=== PATIENT | male | born 1950 | race Caucasian/White ===

== ENCOUNTER → 2017-06-09 | Outpatient (CLI) | payer MEDICARE, OTHER ==
--- NOTE | 2017-06-09 08:46 | RADIOLOGY REPORT (SQ) ---
EXAM DESCRIPTION: CT ABD/PELVIS WITH IV ORAL COMPLETED DATE/TIME: 06/09/2017 8:18 am REASON FOR STUDY: BENIGN NEOPLASM OF CECUM (D12.0) D12.0 BENIGN NEOPLASM OF CECUM COMPARISON: None. TECHNIQUE: CT scan of the abdomen and pelvis performed using helical scanning technique with dynamic intravenous contrast injection. Patient drank oral contrast. Images reviewed with lung, soft tissue , and bone windows. Reconstructed coronal and sagittal MPR images reviewed. Delayed images for evalua tion of the urinary system also acquired. All images stored on PACS. All CT scanners at this facility use dose modulation, iterative reconstruction, and/or weight based d osing when appropriate to reduce radiation dose to as low as reasonably achievable (ALARA). [facility]: Dose Right [facility]: CareDose [facility]: Dose Right [facility]: Teradose 4D [facility]: [facility] CONTRAST TYPE AND DOSE: contrast/concentration: Isovue 370.00 mg/ml; Total Contrast Delivered: 93.0 ml; Total Saline Delivered: 71.0 ml RENAL FUNCTION: Creatinine 0.9 RADIATION DOSE: CT Rad equipment meets quality standard of care and radiation dose reduction techniq ues were employed. CTDIvol: 10.9 - 12.6 mGy. DLP: 1278 mGy-cm.. LIMITATIONS: None. FINDINGS: Patient had a recent colonoscopy which demonstrated a mass in the cecum, tubulovillous at adenoma with atypia. On axial images 56 through 66, and coronal image 55, there is a 4.8 cm cranioca udad by 5.2 cm transverse x 2.6 cm AP mass along the posterior wall of the cecum extending from the i leocecal valve to the base of the appendix. There are several less than 7 mm right colon mesenteric nodes. Remainder of the gastrointestinal tract is otherwise unremarkable. Patient drank oral contrast. No evidence of bowel obstruction. No free air or fluid. LOWER CHEST: Less than 4 mm left lateral costophrenic sulcus noncalcified granuloma axial image 14 LIVER: Normal size. No masses. No dilated ducts. 9 mm cyst sub- diaphragmatic surface left lobe li baltazar axial image 15 SPLEEN: Normal size. No focal lesions. PANCREAS: No masses. No significant calcifications. No adjacent inflammation or peripancreatic fluid collections. Pancreatic duct not dilated. GALLBLADDER: No identified stones by CT criteria. No inflammatory changes to suggest cholecystitis. ADRENAL GLANDS: No significant masses or asymmetry. RIGHT KIDNEY AND URETER: No solid masses. No significant calcifications. No hydronephrosis or hyd roureter. LEFT KIDNEY AND URETER: No solid masses. 11 cm left renal cortical cyst. No significant calcificati ons. No hydronephrosis or hydroureter. AORTA AND VESSELS: No aneurysm. No dissection. Renal arteries, SMA, celiac without stenosis. RETROPERITONEUM: No retroperitoneal adenopathy, hemorrhage or masses. BOWEL AND PERITONEAL CAVITY: As above APPENDIX: Normal. PELVIS: No mass. No free fluid. Normal bladder. ABDOMINAL WALL: No masses. No hernias. BONES: No significant or acute findings. OTHER: No other significant finding. IMPRESSION: 5.2 x 4.8 x 2.6 cm mass in the cecum, with multiple small right colon mesenteric nodes TECHNICAL DOCUMENTATION: JOB ID: [id number] Quality ID # [id number]: Final reports with documentation of one or more dose reduction techniques (e.g., Au tomated exposure control, adjustment of the mA and/or kV according to patient size, use of iterative reconstruction technique) 2010 [employer]- All Rights Reserved
== END ==
LOC: RAD 07:29
PROVIDERS: ATTEND Surgery
DX: D12.0 Benign neoplasm of cecum (principal)
CPT/HCPCS: 74177; 82565

== ENCOUNTER 2017-07-20 11:30 | Inpatient (IN) | payer MEDICARE, OTHER ==
[2017-07-15 12:11] LABS: HEMATOCRIT 44.4 % (37.9-51.0); MEAN CORPUSCULAR HEMOGLOBIN 29.4 pg (27.0-33.4); MEAN CORPUSCULAR HGB CONC 33.7 g/dL (32.0-36.0); MEAN CORPUSCULAR VOLUME 87 fl (80-97); PLATELET COUNT 249 10^3/uL (150-450); RED BLOOD COUNT 5.09 10^6/uL (4.35-5.55); RED CELL DISTRIBUTION WIDTH 13.1 % (11.5-14.0); WHITE BLOOD COUNT 6.4 10^3/uL (4.0-10.5)
[2017-07-15 12:36] LABS: ALANINE AMINOTRANSFERASE 31 U/L (21-72); ALBUMIN 4.4 g/dL (3.5-5.0); ALKALINE PHOSPHATASE 62 U/L (38-126); ANION GAP 10 (5-19); ASPARTATE AMINO TRANSFERASE 22 U/L (17-59); BILIRUBIN,DIRECT 0.4 mg/dL (0.0-0.4); BILIRUBIN,TOTAL 0.5 mg/dL (0.2-1.3); BLOOD UREA NITROGEN 23 mg/dL (7-20); CARBON DIOXIDE 29 mmol/L (22-30); CHLORIDE 102 mmol/L (98-107); GLUCOSE 90 mg/dL (75-110); POTASSIUM 4.9 mmol/L (3.6-5.0); SODIUM 141.4 mmol/L (137-145)
--- NOTE | 2017-07-15 12:36 | RADIOLOGY REPORT (SQ) ---
EXAM DESCRIPTION: CHEST PA/LATERAL COMPLETED DATE/TIME: 07/15/2017 11:27 am REASON FOR STUDY: PRE-OP COMPARISON: None. EXAM PARAMETERS: NUMBER OF VIEWS: two views TECHNIQUE: Digital Frontal and Lateral radiographic views of the chest acquired. RADIATION DOSE: NA LIMITATIONS: none FINDINGS: LUNGS AND PLEURA: No opacities, masses or pneumothorax. No pleural effusion. MEDIASTINUM AND HILAR STRUCTURES: No masses or contour abnormalities. HEART AND VASCULAR STRUCTURES: Heart normal size. No evidence for failure. BONES: No acute findings. HARDWARE: None in the chest. OTHER: No other significant finding. IMPRESSION: NO SIGNIFICANT RADIOGRAPHIC FINDING IN THE CHEST. TECHNICAL DOCUMENTATION: JOB ID: [id number] [employer]- All Rights Reserved
[2017-07-15 13:04] LABS: CARCINOEMBRYONIC ANTIGEN 0.9 ng/mL (<3.0)
--- NOTE | 2017-07-16 11:06 | EKG REPORT ---
SEVERITY:- OTHERWISE NORMAL ECG - SINUS BRADYCARDIA : Confirmed by: Silvestre Merlos 16-Jul-2017 11:05:43
[2017-07-26] MEDS ORDERED: ERTAPENEM SODIUM 1 GM in NORMAL SALINE 50 ML IV PRN (11:58)
[2017-07-27] MEDS ORDERED: LACTATED RINGERS 1000 ML IV PRN (05:00)
[2017-07-27] MEDS ORDERED: LIDOCAINE 0.5% INJ-PF (5 MG/ML) 50 ML SDV SUBCUT PRN (05:00)
[2017-07-27] MEDS ORDERED: NEOSTIGMINE METHYLSULFATE 10 MG/10 ML VIAL ONE (07:59)
[2017-07-27] MEDS ORDERED: DEXAMETHASONE SOD PHOSPHATE INJ 4 MG/1 ML VIAL ONE (07:59)
[2017-07-27] MEDS ORDERED: GLYCOPYRROLATE INJ 0.4 MG/2 ML VIAL ONE (07:59)
[2017-07-27] MEDS ORDERED: ONDANSETRON HCL INJ/PF 4 MG/2 ML SDV ONE (07:59)
[2017-07-27] MEDS ORDERED: ROCURONIUM BROMIDE INJ 50 MG/5 ML VIAL IV ONE ×2 (07:59→08:00)
[2017-07-27] MEDS ORDERED: ERTAPENEM SODIUM 1 GM in NORMAL SALINE 50 ML IV PRN (09:34)
[2017-07-27] MEDS ORDERED: ERTAPENEM SODIUM 1 GM in NORMAL SALINE 100 ML IV PRN (09:40)
[2017-07-27] MEDS ORDERED: BUPIVACAINE HCL 0.25 % INJ/PF (2.5 MG/1 ML) 30 ML VIAL ONE (10:02)
[2017-07-27] MEDS ORDERED: FENTANYL CITRATE INJ/PF 250 MCG/5 ML AMPULE ONE (11:08)
[2017-07-27] MEDS ORDERED: MIDAZOLAM 2 MG/2 ML INJ ONE (11:09)
[2017-07-27] MEDS ORDERED: ACETAMINOPHEN 100 ML IV ONE (11:09)
[2017-07-27] MEDS ORDERED: HYDROMORPHONE HCL INJ/PF 2 MG/ML AMPULE ONE (11:09)
[2017-07-27] MEDS ORDERED: PROPOFOL INJ 200 MG/20 ML VIAL IV ONE (11:09)
[2017-07-27] MEDS ORDERED: BUPIVACAINE HCL 0.5%-EPI 1:200000 INJ/PF 30 ML VIAL ONE (11:59)
[2017-07-27] MEDS ORDERED: EPHEDRINE SULFATE INJ 50 MG/1 ML AMPULE ONE (12:16)
[2017-07-27] MEDS ORDERED: FENTANYL CITRATE INJ/PF 100 MCG/2 ML AMPUL IV PRN ×3 (12:33)
[2017-07-27] MEDS ORDERED: DIPHENHYDRAMINE HCL 50 MG/ML VIAL IV PRN (12:33)
[2017-07-27] MEDS ORDERED: PROMETHAZINE HCL INJ 25 MG/1 ML VIAL IV PRN ×2 (12:33)
[2017-07-27] MEDS ORDERED: MORPHINE SULFATE 10 MG/ML INJ IV PRN (12:33)
[2017-07-27] MEDS ORDERED: MEPERIDINE HCL/PF INJ 25 MG/1 ML DISP.SYRIN IV PRN (12:33)
[2017-07-27] MEDS ORDERED: ONDANSETRON HCL INJ/PF 4 MG/2 ML SDV IV PRN (14:44)
[2017-07-27] MEDS ORDERED: GLUCAGON,HUMAN RECOMB 1 MG INJ SUBCUT PRN (14:44)
[2017-07-27] MEDS ORDERED: DEXTROSE 40% GEL 15 GM TUBE PO PRN ×2 (14:44)
[2017-07-27] MEDS ORDERED: DEXTROSE 50%-WATER 25 GM/50 ML DISP.SYRIN IV PRN ×2 (14:44)
--- NOTE | 2017-07-27 14:53 | Operative Report ---
Operative Report DATE OF SURGERY: 07/27/17 PREOPERATIVE DIAGNOSIS: Right colon mass. POSTOPERATIVE DIAGNOSIS: Right colon mass. OPERATION: Right hemicolectomy. SURGEON: LAYLA LEACH ANESTHESIA: GA TISSUE REMOVED OR ALTERED: Right colon. COMPLICATIONS: None. ESTIMATED BLOOD LOSS: 200 cc INTRAOPERATIVE FINDINGS: Large cecal mass. Mesh at the periumbilical fascia well incorporated. 1 cm left lateral segment of the liver smooth round mass consistent with cyst seen on CT scan. PROCEDURE: Informed consent was obtained. Patient was brought to the operating room and placed on the operating room table in the supine position. After satisfactory induction of general anesthesia patient's abdomen was prepped and draped in the usual sterile fashion. A midline abdominal incision was made dissection was carried down through the fascia and the peritoneal cavity was entered without difficulty in the upper abdomen. Dissection was then carried down where I encountered well incorporated mesh at the periumbilical region. The mesh was sharply incised. There were omental adhesions to the mesh which were taken down. Exploratory laparotomy was performed first. The small bowel was run from the ligament of Treitz to the ileocecal junction. The small bowel was normal. There was a large mass palpable in the cecum. Remainder the colon felt normal with no palpable masses. The peritoneal surface was smooth other than the region of the mesh. The liver felt smooth. there was a palpable 1 cm lump that was smooth round but could not be visualized from the surface, at the left lateral segment of the liver. This lump corresponded with the cyst that was seen by CT scan. I discussed the CT scan finding with the radiologist who was certain that the lesion was not a solid lesion. With a benign feel of the lump as well as the benign appearance on CT scan I did not biopsy this lesion. The stomach surface felt smooth. NG tube position was confirmed. Markedly fatty omentum made the procedure difficult. The right colon was mobilized along the line of Toldt. The hepatic flexure was completely mobilized. The ureter and the duodenum were visualized and protected during the dissection. The ileocolic artery was taken very close to its origin by clamping dividing and tying. The entire right colon mesentery was taken with the specimen as well as the right half of the omentum. The terminal ileum was divided with a ALEJANDRA stapling device several centimeters away from the ileocolic junction. The transverse colon was divided at the mid transverse colon level with a ALEJANDRA stapling device. The mesentery of the resected portion of the transverse colon was taken using a LigaSure device. The specimen was submitted to pathology and pathology confirmed a suspicious appearing mass in the cecum. No abnormalities at the margins. Hemostasis appeared good. Bowel continuity was then re- created between the ileum and the transverse colon with a ALEJANDRA stapling device, creating a [id number] functional end-to-end anastomosis. The enterotomy made to introduced a stapling device was closed with a TA stapling device. The anastomosis appeared secure. Vascular supply appeared excellent with palpable pulses in the mesentery of the ileum as well as the transverse colon end. Bowel was returned back into the peritoneal cavity. Omentum was draped over the bowel. Sponge needle and instrument counts were all correct. The fascia was closed with running PDS suture. Skin was closed with augustin. Marcaine was injected at the operative site. Patient tolerated procedure well with no apparent complications and was taken to the recovery area in stable condition.
[2017-07-27] MEDS: HYDROMORPHONE HCL INJ/PF 2 MG/ML AMPULE IV PRN ×2 (16:45→21:20)
[2017-07-27] MEDS: KETOROLAC TROMETHAMINE INJ/PF 30 MG/1 ML SDV IV PRN (19:31)
--- NOTE | 2017-07-27 19:58 | PDOC PROGRESS REPORT ---
Subjective Progress Note for:: 07/27/17 Subjective:: Feels well. No complaints. Reason For Visit: D12.0 BENIGN NEOPLASM OF CECUM Physical Exam Vital Signs: Temp Pulse Resp BP Pulse Ox 97.6 F 53 L 18 137/91 H 97 07/27/17 16:03 07/27/17 16:03 07/27/17 16:03 07/27/17 15:25 07/27/17 16:03 Intake & Output 07/26/17 07/27/17 07/28/17 06:59 06:59 06:59 Intake Total 3000 Output Total 600 Balance 2400 Weight 86.18 kg General appearance: PRESENT: no acute distress, cooperative Respiratory exam: PRESENT: clear to auscultation andrea Cardiovascular exam: PRESENT: RRR GI/Abdominal exam: PRESENT: other - Soft, appropriate tenderness Extremities exam: PRESENT: other - No swelling and no tenderness Results Laboratory Results: 07/15/17 11:00 07/15/17 11:00 Impressions: Chest X-Ray 07/15/17 11:17 IMPRESSION: NO SIGNIFICANT RADIOGRAPHIC FINDING IN THE CHEST. Assessment & Plan - Diagnosis (1) Colon neoplasm Is this a current diagnosis for this admission?: Yes Plan: Status post right hemicolectomy. Patient looks good postoperatively. Await bowel function.
[2017-07-28] MEDS: HYDROMORPHONE HCL INJ/PF 2 MG/ML AMPULE IV PRN ×6 (01:09→23:54)
[2017-07-28 07:17] LABS: HEMATOCRIT 39.9 % (37.9-51.0); HEMOGLOBIN 13.4 g/dL (13.5-17.0); MEAN CORPUSCULAR HEMOGLOBIN 29.7 pg (27.0-33.4); MEAN CORPUSCULAR HGB CONC 33.7 g/dL (32.0-36.0); MEAN CORPUSCULAR VOLUME 88 fl (80-97); PLATELET COUNT 270 10^3/uL (150-450); RED BLOOD COUNT 4.53 10^6/uL (4.35-5.55); RED CELL DISTRIBUTION WIDTH 13.3 % (11.5-14.0)
[2017-07-28 07:33] LABS: ANION GAP 5 (5-19); BLOOD UREA NITROGEN 23 mg/dL (7-20); CALCIUM 8.5 mg/dL (8.4-10.2); CARBON DIOXIDE 30 mmol/L (22-30); CHLORIDE 104 mmol/L (98-107); GLUCOSE 120 mg/dL (75-110); POTASSIUM 5.1 mmol/L (3.6-5.0); SODIUM 138.6 mmol/L (137-145)
--- NOTE | 2017-07-28 09:01 | PDOC PROGRESS REPORT ---
Subjective Progress Note for:: 07/28/17 Subjective:: Feels well. No complaints Reason For Visit: D12.0 BENIGN NEOPLASM OF CECUM Physical Exam Vital Signs: Temp Pulse Resp BP Pulse Ox 97.7 F 61 16 132/77 H 97 07/28/17 08:00 07/28/17 08:00 07/28/17 08:00 07/28/17 08:00 07/28/17 08:00 Intake & Output 07/27/17 07/28/17 07/29/17 06:59 06:59 06:59 Intake Total 4364 Output Total 1050 Balance 3314 Weight 97.8 kg General appearance: PRESENT: no acute distress, cooperative Respiratory exam: PRESENT: clear to auscultation andrea Cardiovascular exam: PRESENT: RRR GI/Abdominal exam: PRESENT: other - Soft, moderately distended. NG output scant Extremities exam: PRESENT: other - No swelling and no tenderness Results Laboratory Results: 07/28/17 06:58 07/28/17 06:58 07/28/17 07/28/17 06:58 06:58 WBC 14.0 H RBC 4.53 Hgb 13.4 L Hct 39.9 MCV 88 MCH 29.7 MCHC 33.7 RDW 13.3 Plt Count 270 Sodium 138.6 Potassium 5.1 H Chloride 104 Carbon Dioxide 30 Anion Gap 5 BUN 23 H Creatinine 0.99 Est GFR ( Amer) > 60 Est GFR (Non-Af Amer) > 60 Glucose 120 H Calcium 8.5 Impressions: Chest X-Ray 07/15/17 11:17 IMPRESSION: NO SIGNIFICANT RADIOGRAPHIC FINDING IN THE CHEST. Assessment & Plan - Diagnosis (1) Colon neoplasm Is this a current diagnosis for this admission?: Yes Plan: Status post right hemicolectomy. Looks a little dry. will give IV fluid bolus. Keep Contreras until better ambulation. Await bowel function.
[2017-07-28] MEDS ORDERED: BRIMONIDINE TARTRATE 0.2% OPH SOLN 5 ML OS SCH (10:00)
[2017-07-28] MEDS ORDERED: TIMOLOL MALEATE 0.5% OPH SOLN 5 ML OS SCH (10:00)
[2017-07-28] MEDS ORDERED: (PENDING PHARMACY ID) (Brimonidine Tartrate/Timolol [Combigan 0.2%-0.5% Eye Drops] 5 ML) OP SCH (10:00)
[2017-07-28] MEDS: NORMAL SALINE 1000 ML 1,000 ML IV PRN (11:29)
[2017-07-28] MEDS ORDERED: NORMAL SALINE 1000 ML 1,000 ML IV ONE (15:45)
[2017-07-28] MEDS ORDERED: OXYMETAZOLINE HCL 0.05% NASAL SPRAY 15 ML BOTTLE NASL ONE (18:30)
[2017-07-28] MEDS: KETOROLAC TROMETHAMINE INJ/PF 30 MG/1 ML SDV IV PRN (20:15)
[2017-07-29] MEDS: HYDROMORPHONE HCL INJ/PF 2 MG/ML AMPULE IV PRN ×2 (05:12→13:05)
[2017-07-29] MEDS: COMBIGAN OS SCH (09:12)
[2017-07-29] MEDS: OPTHALMIC OS SCH (09:12)
[2017-07-29] MEDS: NORMAL SALINE 1000 ML 1,000 ML IV PRN ×2 (09:12→19:16)
[2017-07-29] MEDS: KETOROLAC TROMETHAMINE INJ/PF 30 MG/1 ML SDV IV PRN ×2 (09:12→20:20)
--- NOTE | 2017-07-29 11:15 | PDOC PROGRESS REPORT ---
Subjective Progress Note for:: 07/29/17 Subjective:: Feels well. No flatus. No nausea or vomiting. Pain under reasonable control. Ambulating. Reason For Visit: D12.0 BENIGN NEOPLASM OF CECUM Physical Exam Vital Signs: Temp Pulse Resp BP Pulse Ox 98.1 F 67 18 156/75 H 94 07/29/17 08:00 07/29/17 08:00 07/29/17 08:00 07/29/17 08:00 07/29/17 08:00 Intake & Output 07/28/17 07/29/17 07/30/17 06:59 06:59 06:59 Intake Total 4364 3100 Output Total 1050 1690 Balance 3314 1410 Weight 97.8 kg 97.8 kg General appearance: PRESENT: no acute distress, cooperative Respiratory exam: PRESENT: clear to auscultation andrea Cardiovascular exam: PRESENT: RRR GI/Abdominal exam: PRESENT: other - Soft, moderately distended, diminished bowel sounds, appropriate mild tenderness. Extremities exam: PRESENT: other - No swelling and no tenderness Results Laboratory Results: 07/28/17 06:58 07/28/17 06:58 Impressions: Chest X-Ray 07/15/17 11:17 IMPRESSION: NO SIGNIFICANT RADIOGRAPHIC FINDING IN THE CHEST. Assessment & Plan - Diagnosis (1) Colon neoplasm Is this a current diagnosis for this admission?: Yes Plan: Status post right hemicolectomy. Looks good. [place] Contreras. Continue to encourage ambulation. Await bowel function.
[2017-07-29] MEDS: FAMOTIDINE INJ/PF 20 MG/2 ML SDV IV SCH (17:36)
[2017-07-30] MEDS: HYDROMORPHONE HCL INJ/PF 2 MG/ML AMPULE IV PRN (02:41)
[2017-07-30] MEDS: FAMOTIDINE INJ/PF 20 MG/2 ML SDV IV SCH ×2 (06:04→18:15)
--- NOTE | 2017-07-30 08:29 | PDOC PROGRESS REPORT ---
Subjective Subjective:: Feels well. No flatus. Ambulating very well. Reason For Visit: D12.0 BENIGN NEOPLASM OF CECUM Physical Exam Vital Signs: Temp Pulse Resp BP Pulse Ox 98.2 F 62 20 160/86 H 91 L 07/30/17 04:03 07/30/17 04:03 07/30/17 04:03 07/30/17 04:03 07/30/17 04:03 Intake & Output 07/29/17 07/30/17 07/31/17 06:59 06:59 06:59 Intake Total 3100 2054 Output Total 1690 3520 Balance 1410 -1466 Weight 97.8 kg 91.6 kg General appearance: PRESENT: no acute distress, cooperative Respiratory exam: PRESENT: clear to auscultation andrea Cardiovascular exam: PRESENT: RRR GI/Abdominal exam: PRESENT: other - Soft, nondistended, minimal tenderness. Wound clean dry and intact. Extremities exam: PRESENT: other - No swelling and no tenderness Results Laboratory Results: 07/28/17 06:58 07/28/17 06:58 Impressions: Chest X-Ray 07/15/17 11:17 IMPRESSION: NO SIGNIFICANT RADIOGRAPHIC FINDING IN THE CHEST. Assessment & Plan - Diagnosis (1) Colon neoplasm Is this a current diagnosis for this admission?: Yes (2) Cecal cancer Is this a current diagnosis for this admission?: Yes Plan: T3N0. Doing well after right hemicolectomy. Await bowel function.
[2017-07-30 10:25] LABS: ANION GAP 11 (5-19); BLOOD UREA NITROGEN 13 mg/dL (7-20); CARBON DIOXIDE 27 mmol/L (22-30); CHLORIDE 101 mmol/L (98-107); GLUCOSE 73 mg/dL (75-110); POTASSIUM 4.6 mmol/L (3.6-5.0); SODIUM 139.1 mmol/L (137-145)
[2017-07-30] MEDS: OPTHALMIC OS SCH (10:36)
[2017-07-30] MEDS: COMBIGAN OS SCH (10:36)
[2017-07-30] MEDS: KETOROLAC TROMETHAMINE INJ/PF 30 MG/1 ML SDV IV PRN (23:47)
[2017-07-31] MEDS: FAMOTIDINE INJ/PF 20 MG/2 ML SDV IV SCH ×2 (05:30→18:12)
[2017-07-31] MEDS: COMBIGAN OS SCH (11:06)
[2017-07-31] MEDS: OPTHALMIC OS SCH (11:06)
--- NOTE | 2017-07-31 21:29 | PDOC PROGRESS REPORT ---
Subjective Progress Note for:: 07/31/17 Subjective:: Passed flatus and had BM Reason For Visit: D12.0 BENIGN NEOPLASM OF CECUM Physical Exam Vital Signs: Temp Pulse Resp BP Pulse Ox 98.3 F 58 L 16 154/92 H 96 07/31/17 15:32 07/31/17 15:32 07/31/17 15:32 07/31/17 15:32 07/31/17 15:32 Intake & Output 07/30/17 07/31/17 08/01/17 06:59 06:59 06:59 Intake Total 2054 826 252 Output Total 3520 1250 400 Balance -1466 -424 -148 Weight 91.6 kg 89.9 kg Exam: Abd is soft with minimal tenderness Results Laboratory Results: 07/28/17 06:58 07/30/17 09:24 Impressions: Chest X-Ray 07/15/17 11:17 IMPRESSION: NO SIGNIFICANT RADIOGRAPHIC FINDING IN THE CHEST. Assessment & Plan - Time Time Spent with patient: 15-24 minutes - Plan Summary Plan Summary: Start clear liquids
[2017-08-01] MEDS: FAMOTIDINE INJ/PF 20 MG/2 ML SDV IV SCH ×2 (05:31→18:23)
[2017-08-01] MEDS: OPTHALMIC OS SCH (15:22)
[2017-08-01] MEDS: COMBIGAN OS SCH (15:22)
[2017-08-01] MEDS ORDERED: HYDROCORTISONE 1% CREAM 28.35 GM TP ONE (17:00)
[2017-08-01] MEDS: HYDROCORTISONE 1% CREAM 28.35 GM TP SCH (21:27)
--- NOTE | 2017-08-01 22:12 | PDOC PROGRESS REPORT ---
Subjective Progress Note for:: 08/01/17 Subjective:: Had BM today Reason For Visit: D12.0 BENIGN NEOPLASM OF CECUM Physical Exam Vital Signs: Temp Pulse Resp BP Pulse Ox 97.3 F 74 20 168/100 H 100 08/01/17 15:24 08/01/17 15:24 08/01/17 15:24 08/01/17 15:24 08/01/17 15:24 Intake & Output 07/31/17 08/01/17 08/02/17 06:59 06:59 06:59 Intake Total 826 427 330 Output Total 1250 400 Balance -424 27 330 Weight 89.9 kg Exam: Abd is soft just slightly distended Results Laboratory Results: 07/28/17 06:58 07/30/17 09:24 Impressions: Chest X-Ray 07/15/17 11:17 IMPRESSION: NO SIGNIFICANT RADIOGRAPHIC FINDING IN THE CHEST. Assessment & Plan - Time Time Spent with patient: 15-24 minutes - Plan Summary Plan Summary: Start clears and progress as tolerated Possible discharge in 24-48 hrs
[2017-08-02] MEDS: FAMOTIDINE INJ/PF 20 MG/2 ML SDV IV SCH (05:35)
[2017-08-02] MEDS: HYDROCORTISONE 1% CREAM 28.35 GM TP SCH (05:35)
[2017-08-02 08:21] VITALS: BP 131/88
[2017-08-02] MEDS: COMBIGAN OS SCH (08:39)
[2017-08-02] MEDS: OPTHALMIC OS SCH (08:39)
--- NOTE | 2017-08-02 09:32 | PDOC PROGRESS REPORT ---
Subjective Progress Note for:: 08/02/17 Subjective:: Feels well. Having bowel movements. Tolerating diet well. Pain minimal. Reason For Visit: D12.0 BENIGN NEOPLASM OF CECUM Physical Exam Vital Signs: Temp Pulse Resp BP Pulse Ox 98.6 F 69 16 131/88 H 96 08/02/17 08:00 08/02/17 08:00 08/02/17 08:00 08/02/17 08:00 08/02/17 08:00 Intake & Output 08/01/17 08/02/17 08/03/17 06:59 06:59 06:59 Intake Total 427 790 Output Total 400 Balance 27 790 Weight 83.5 kg General appearance: PRESENT: no acute distress, cooperative Respiratory exam: PRESENT: clear to auscultation andrea Cardiovascular exam: PRESENT: RRR GI/Abdominal exam: PRESENT: other - Soft, Nondistended, nontender to palpation. Wound clean dry and intact with augustin. Extremities exam: PRESENT: other - No swelling and no tenderness Results Laboratory Results: 07/28/17 06:58 07/30/17 09:24 Impressions: Chest X-Ray 07/15/17 11:17 IMPRESSION: NO SIGNIFICANT RADIOGRAPHIC FINDING IN THE CHEST. Assessment & Plan - Diagnosis (1) Colon neoplasm Is this a current diagnosis for this admission?: Yes (2) Cecal cancer Is this a current diagnosis for this admission?: Yes Plan: T3N0. Doing well after right hemicolectomy. Will discharge patient home. Follow-up this Wednesday for staple removal.
--- NOTE | 2017-08-02 10:23 | DISCHARGE SUMMARY E ---
Discharge Summary NAME: ROBERT SOW : 1950 AGE: 66Y ADMITTED: 07/27/2017 DISCHARGED: 08/02/2017 DISCHARGE DIAGNOSIS: Cecal cancer. PROCEDURE PERFORMED DURING HOSPITALIZATION: Right hemicolectomy performed by Dr. Torres Turcios on July 27, 2017. HOSPITAL COURSE: The patient underwent the abovementioned procedure. He had did well postoperatively. He had gradual resumption of bowel function. He was tolerating a diet well with good bowel function at the time of discharge. He was virtually pain free. The patient has now been discharged to home in good condition. He will follow up with me this Wednesday. He is encouraged to stay active at home but avoid strenuous activity. He may resume his home medications. He may take Tylenol p.r.n. for pain. DICTATING PHYSICIAN: TORRES TURCIOS M.D. [id number] PHY#: [id number] ID: [id number] JOB#: [id number] ACCT: [id number] cc:TORRES TURCIOS M.D. >
== END 2017-08-02 10:35 | disposition home or self-care (01) | DRG 331 ==
LOC: INOR 07-27 09:17 → 5 07-27 16:02
PROVIDERS: ADMIT Surgery; ATTEND Surgery
PROC: 0DTF0ZZ Resection of Right Large Intestine, Open Approach (ICD-10-PCS; principal; 2017-07-27 11:30)
DX: C18.0 Malignant neoplasm of cecum (principal); K63.5 Polyp of colon; H40.9 Unspecified glaucoma
CPT/HCPCS: 36415; 71046; 790; 80048; 80053; 82378; 85027; 88309; 93005; 93010; J0131; J1100; J1170; J1335; J1885; J2250; J2405; J2704; J3010; J3490; J7030; S0028

== ENCOUNTER → 2017-09-24 | Outpatient (CLI) | payer MEDICARE, OTHER ==
[2017-09-24 09:13] LABS: CHOLESTEROL 233.71 mg/dL (0-200); TRIGLYCERIDES 130 mg/dL (<150)
[2017-09-24 09:24] LABS: DIRECT LDL 134 mg/dL (<100)
== END ==
LOC: OD 07:53
PROVIDERS: ATTEND Surgery
DX: C18.2 Malignant neoplasm of ascending colon (principal); R97.20 Elevated prostate specific antigen [PSA]; E78.5 Hyperlipidemia, unspecified
CPT/HCPCS: 36415; 80061; 82378; 84153

== ENCOUNTER 2018-01-30 21:16 | Emergency (ER) | payer MEDICARE, OTHER ==
--- NOTE | 2018-01-30 23:31 | ER Document Report ---
ED General - General Chief Complaint: Bee Sting Stated Complaint: POSSIBLE BUG BITE Time Seen by Provider: 01/30/18 22:21 Notes: Patient is a 67-year-old male who presents with approximately 12-24 hours of progressively worsening redness and pain to his left forearm and wrist. The patient states that approximately 24 hours ago he was stung by yellow jacket on his left wrist. He states that he pulled the stinger out and did not have any further symptoms thereafter. He states that initially when he woke up this morning he felt fine, but as the day progressed he noticed progressively worsening redness spreading from his wrist up his forearm and now past his elbow. He states that the area is quite itchy but is also painful. He describes as a throbbing, aching pain. Nothing improves or worsens his symptoms. He has tried Claritin at home with minimal to no improvement. He denies history of similar symptoms in the past. He has not contacted his primary care doctor regarding today's concerns. He denies fever or constitutional symptoms. TRAVEL OUTSIDE OF THE [place] IN LAST 30 DAYS: No - Related Data Allergies/Adverse Reactions: Sulfa (Sulfonamide Antibiotics) Adverse Reaction (Verified 07/27/17 09:47) Anxiety Past Medical History - General Information source: Patient - Social History Smoking Status: Never Smoker Frequency of alcohol use: None Drug Abuse: None Lives with: Spouse/Significant other Family History: Reviewed & Not Pertinent Patient has suicidal ideation: No Patient has homicidal ideation: No - Past Medical History Cardiac Medical History: Denies: Hx Atrial Fibrillation, Hx Congestive Heart Failure, Hx Coronary Artery Disease, Hx Heart Attack, Hx Hypercholesterolemia, Hx Hypertension, Hx Peripheral Vascular Disease, Hx Pulmonary Embolism, Hx Heart Murmur Pulmonary Medical History: Denies: Hx Asthma, Hx Bronchitis, Hx COPD, Hx Pneumonia, Hx Respiratory Failure, Hx Sleep Apnea, Hx Tuberculosis Renal/ Medical History: Reports: Hx Benign Prostatic Hyperplasia. Denies: Hx End Stage Renal Disease, Hx Kidney Stones, Hx Peritoneal Dialysis Malignancy Medical History: Denies Hx Lung Cancer GI Medical History: Denies: Hx Crohn's Disease, Hx Gastroesophageal Reflux Disease, Hx Hiatal Hernia, Hx Irritable Bowel, Hx Liver Failure, Hx Pancreatitis , Hx Ulcer Musculoskeletal Medical History: Denies Hx Arthritis, Denies Hx Fibromyalgia, Denies Hx Muscular Dystrophy Traumatic Medical History: Reports: Hx Fractures - left index finger crush injury Past Surgical History: Denies: Hx Appendectomy, Hx Bowel Surgery, Hx Cholecystectomy, Hx Colostomy, Hx Coronary Artery Bypass Graft, Hx Gastric Bypass Surgery, Hx Herniorrhaphy, Hx Pacemaker, Hx Tonsillectomy Review of Systems - Review of Systems Notes: Constitutional: Negative for fever. HENT: Negative for sore throat. Eyes: Negative for visual changes. Cardiovascular: Negative for chest pain. Respiratory: Negative for shortness of breath. Gastrointestinal: Negative for abdominal pain, vomiting or diarrhea. Genitourinary: Negative for dysuria. Musculoskeletal: Negative for back pain. Skin: Positive for rash. Neurological: Negative for headaches, weakness or numbness. 10 point ROS negative except as marked above and in HPI. Physical Exam - Vital signs Vitals: Temp Pulse Resp BP Pulse Ox 98.0 F 68 22 H 136/89 H 97 01/30/18 21:42 01/30/18 21:42 01/30/18 21:42 01/30/18 21:42 01/30/18 21:42 Interpretation: Normal Notes: PHYSICAL EXAMINATION: GENERAL: Well-appearing, well-nourished and in no acute distress. HEAD: Atraumatic, normocephalic. EYES: Pupils equal round and reactive to light, extraocular movements intact, sclera anicteric, conjunctiva are normal. ENT: nares patent, oropharynx clear without exudates. Moist mucous membranes. NECK: Normal range of motion, supple without lymphadenopathy LUNGS: Breath sounds clear to auscultation bilaterally and equal. No wheezes rales or rhonchi. HEART: Regular rate and rhythm without murmurs ABDOMEN: Soft, nontender, normoactive bowel sounds. No guarding, no rebound. No masses appreciated. EXTREMITIES: Normal range of motion, no pitting or edema. No cyanosis. NEUROLOGICAL: No focal neurological deficits. Moves all extremities spontaneously and on command. PSYCH: Normal mood, normal affect. SKIN: Warm, Dry, normal turgor, spreading erythema over the central portion of the entirety of the left forearm passing just above the medial epicondyle Course - Re-evaluation Re-evalutation: 01/30/18 23:28 Patient presents with symptoms most consistent with an acute cellulitis. Vitals within normal limits. Patient does not meet sepsis criteria is overall very well in appearance. Exam and history are not consistent with DVT. Patient will be started on cephalexin. The inciting event was a bee sting although the area of erythema did not present until 36 hours after the sting making an acute allergic reaction far less likely. I have advised the patient to take over-the- counter antihistamines in conjunction with antibiotics to cover for the possibility this could be allergic but the pattern on the skin and the clinical history is much more consistent with an acute cellulitis. At this time will discharge with return precautions and follow-up recommendations. Verbal discharge instructions given a the bedside and opportunity for questions given. Medication warnings reviewed. Patient is in agreement with this plan and has verbalized understanding of return precautions and the need for primary care follow-up in the next 24-72 hours. - Vital Signs Vital signs: Temp Pulse Resp BP Pulse Ox 98.8 F 55 L 16 144/82 H 95 01/30/18 23:47 01/30/18 23:47 01/30/18 23:47 01/30/18 23:47 01/30/18 23:47 Discharge - Discharge Clinical Impression: Left arm cellulitis Bee sting Qualifiers: Encounter type: initial encounter Injury intent: accidental or unintentional Qualified Code(s): T63.441A - Toxic effect of venom of bees, accidental ( unintentional), initial encounter Condition: Good Disposition: HOME, SELF-CARE Additional Instructions: The rash is likely due to infection of your skin. You need to take the antibiotics as prescribed. Do not stop even if the rash goes away until you have completed all the antibiotics. The area of redness was traced out here in the emergency department with a marking pen. You need to return to emergency department if the redness spreads outside of this area by more than 2 cm in any direction. You should also return if you develop fevers with temperature greater than 101, persistent vomiting, worsening pain, or have any other symptoms that are concerning to you. Prescriptions: Cephalexin Monohydrate [Keflex 500 mg Capsule] 500 mg PO Q6H 7 Days capsule Referrals: PATRIA JOSHI MD [Primary Care Provider] - Follow up in 3-5 days
[2018-01-30] MEDS ORDERED: CEPHALEXIN 500 MG CAPSULE PO ONE (23:32)
[2018-01-30 23:48] VITALS: BP 144/82
== END 2018-01-30 23:47 | disposition home or self-care (01) ==
LOC: ER 21:16
DX: T63.441A Toxic effect of venom of bees, accidental (unintentional), initial encounter (principal); L03.114 Cellulitis of left upper limb
CPT/HCPCS: 99282; A9270

== ENCOUNTER → 2018-04-20 | Outpatient (CLI) | payer MEDICARE, OTHER ==
[2018-04-20 08:36] LABS: CHOLESTEROL 272.77 mg/dL (0-200); TRIGLYCERIDES 157 mg/dL (<150)
[2018-04-20 08:47] LABS: DIRECT LDL 176 mg/dL (<100)
[2018-04-20 09:09] LABS: VLDL CHOLESTEROL 31.4 mg/dL (10-31)
== END ==
LOC: OD 07:42
PROVIDERS: ATTEND Internal Medicine
DX: E78.5 Hyperlipidemia, unspecified (principal); N40.0 Benign prostatic hyperplasia without lower urinary tract symptoms; R97.20 Elevated prostate specific antigen [PSA]
CPT/HCPCS: 36415; 80061; 84153

== ENCOUNTER → 2018-06-07 | Outpatient (CLI) | payer MEDICARE, OTHER ==
--- NOTE | 2018-06-07 08:57 | RADIOLOGY REPORT (SQ) ---
EXAM DESCRIPTION: CT CHEST WITH COMPLETED DATE/TIME: 06/07/2018 8:34 am REASON FOR STUDY: COLON CA (C18.2) C18.2 MALIGNANT NEOPLASM OF ASCENDING COLON COMPARISON: None. TECHNIQUE: CT scan of the chest performed using helical scanning technique with dynamic intravenous contrast injection. Images reviewed with lung, soft tissue and bone windows. Reconstructed coronal and sagittal MPR and MIP images reviewed. All images stored on PACS. All CT scanners at this facility use dose modulation, iterative reconstruction, and/or weight based d osing when appropriate to reduce radiation dose to as low as reasonably achievable (ALARA). [facility]: Dose Right [facility]: CareDose [facility]: Dose Right [facility]: Teradose 4D [facility]: [employer]. CONTRAST TYPE AND DOSE: 100 mL Omnipaque 350- low osmolar. RENAL FUNCTION: Creatinine 1.0. RADIATION DOSE: . LIMITATIONS: None. FINDINGS: LUNGS AND PLEURA: No opacities, nodules, masses. No pneumothorax. No effusions. HILAR AND MEDIASTINAL STRUCTURES: No identified masses or abnormal nodes. HEART AND VASCULAR STRUCTURES: No aneurysm or dissection. No central pulmonary emboli. No pericardi al effusion. HARDWARE: None in the chest. UPPER ABDOMEN: No significant findings. Limited exam. THYROID AND OTHER SOFT TISSUES: No masses. No adenopathy. BONES: No significant finding. OTHER: No other significant finding. IMPRESSION: NORMAL CT OF THE CHEST WITH IV CONTRAST. TECHNICAL DOCUMENTATION: JOB ID: [id number] Quality ID # [id number]: Final reports with documentation of one or more dose reduction techniques (e.g., Au tomated exposure control, adjustment of the mA and/or kV according to patient size, use of iterative reconstruction technique) 2010 [employer]- All Rights Reserved Reading location - IP/workstation name: [email or web address]
--- NOTE | 2018-06-07 09:03 | RADIOLOGY REPORT (SQ) ---
EXAM DESCRIPTION: CT ABD/PELVIS WITH IV ORAL COMPLETED DATE/TIME: 06/07/2018 8:34 am REASON FOR STUDY: COLON CA (C18.2) C18.2 MALIGNANT NEOPLASM OF ASCENDING COLON COMPARISON: 06/09/2017. TECHNIQUE: CT scan of the abdomen and pelvis performed using helical scanning technique with dynamic intravenous contrast injection. No oral contrast. Images reviewed with lung, soft tissue, and bone windows. Reconstructed coronal and sagittal MPR images reviewed. Delayed images for evaluation of the urinary system also acquired. All images stored on PACS. All CT scanners at this facility use dose modulation, iterative reconstruction, and/or weight based d osing when appropriate to reduce radiation dose to as low as reasonably achievable (ALARA). [facility]: Dose Right [facility]: CareDose [facility]: Dose Right [facility]: Teradose 4D [facility]: [employer] CONTRAST TYPE AND DOSE: contrast/concentration: Isovue 350.00 mg/ml; Total Contrast Delivered: 100.0 ml; Total Saline Delivered: 72.0 ml RENAL FUNCTION: Creatinine 1.0. RADIATION DOSE: CT Rad equipment meets quality standard of care and radiation dose reduction techniq ues were employed. CTDIvol: 6.6 - 10.7 mGy. DLP: 1429 mGy-cm.. LIMITATIONS: None. FINDINGS: LOWER CHEST: No significant findings. No nodules or infiltrates. LIVER: Normal size. Stable small subcentimeter cyst in the left lobe No solid masses. No dilated du cts. SPLEEN: Normal size. No focal lesions. PANCREAS: No masses. No significant calcifications. No adjacent inflammation or peripancreatic fluid collections. Pancreatic duct not dilated. GALLBLADDER: No identified stones by CT criteria. No inflammatory changes to suggest cholecystitis. ADRENAL GLANDS: No significant masses or asymmetry. RIGHT KIDNEY AND URETER: No solid masses. No significant calcifications. No hydronephrosis or hyd roureter. LEFT KIDNEY AND URETER: Stable large cortical cyst. No solid masses. No significant calcifications . No hydronephrosis or hydroureter. AORTA AND VESSELS: No aneurysm. No dissection. Renal arteries, SMA, celiac without stenosis. RETROPERITONEUM: No retroperitoneal adenopathy, hemorrhage or masses. BOWEL AND PERITONEAL CAVITY: Previous partial colectomy on the right. No masses or inflammatory loja ges. No free fluid or peritoneal masses. APPENDIX: Surgically absent. PELVIS: No mass. No free fluid. Normal bladder. ABDOMINAL WALL: No masses. No hernias. BONES: No significant or acute findings. OTHER: No other significant finding. IMPRESSION: 1. SURGICAL CHANGES. PREVIOUS PARTIAL COLECTOMY ON THE RIGHT. 2. STABLE SMALL SUBCENTIMETER CYST IN THE LEFT LOBE OF THE LIVER AND LARGE CORTICAL CYST IN THE LEFT KIDNEY. 3. NO OTHER SIGNIFICANT OR ACUTE FINDING IN THE ABDOMEN OR PELVIS ON CT SCAN WITH IV CONTRAST. NO EV IDENCE OF RESIDUAL OR RECURRENT TUMOR OR METASTASIS. TECHNICAL DOCUMENTATION: JOB ID: [id number] Quality ID # [id number]: Final reports with documentation of one or more dose reduction techniques (e.g., Au tomated exposure control, adjustment of the mA and/or kV according to patient size, use of iterative reconstruction technique) 2010 [employer]- All Rights Reserved Reading location - IP/workstation name: [email or web address]
== END ==
LOC: RAD 07:51
PROVIDERS: ATTEND Physician Assistant Medical
DX: C18.2 Malignant neoplasm of ascending colon (principal); N28.1 Cyst of kidney, acquired
CPT/HCPCS: 71260; 74177; 82565